=== PATIENT | female | born 1990 | race African-American/Black ===

== ENCOUNTER 2016-06-20 15:03 | Day surgery (SDC) | payer OTHER ==
[2016-06-19 10:44] VITALS: BMI 22.1
--- NOTE | 2016-06-20 15:23 | HP ---
[facility] - Chief Complaint History of Present Illness: 25 year old female with renal failure and malfunctioning PD catheetr. She has pain and dysuria. She has had 2 catheters and 1 repositioning in the past. History Source: Patient - Past Medical History Allergies/Adverse Reactions: Allergies Allergy/AdvReac Type Severity Reaction Status Date / Time No Known Drug Allergies Allergy Verified 06/19/16 10:47 Renal/: Yes: Renal Failure ...LMP: 06/06/16 - Current Medications Current Medications: Home Medications Medication Instructions Recorded Iron Polysaccharide Complex 150 mg PO DAILY 06/19/16 [Ferrex 150] Losartan Potassium 50 mg PO DAILY 06/19/16 Paricalcitol [Zemplar] 2 mcg PO DAILY 06/19/16 Sevelamer HCl [Renagel] 800 mg PO TID 06/19/16 [facility] Physical Exam - Physical Examination General Appearance: No Distress, Thin Lung: Clear to auscultation Heart: Regular rate & rhythm Abdomen: Soft Extremities: No edema Satellite Impression/Plan - Impression/Plan Impression: Malfunction of PD catheter. Operative Procedure: Repalcement of PD cathater, laparoscopy Date to be Performed: 06/20/16
[2016-06-20 15:31] LABS: INR 0.89 (0.82-1.09); PROTHROMBIN TIME (PATIENT) 9.8 SEC (9.98-11.88)
[2016-06-20] MEDS ORDERED: MIDAZOLAM HCL 2 MG/2 ML SINGLE DOSE VIAL ONE (15:40)
[2016-06-20] MEDS ORDERED: LIDOCAINE HCL/PF 2% SDV 5ML VIAL ONE (15:54)
[2016-06-20] MEDS ORDERED: ceFAZolin SODIUM 1 GM VIAL ONE (16:05)
[2016-06-20] MEDS ORDERED: SODIUM CHLORIDE 0.9% P/F 10 ML VIAL IJ ONE (16:05)
[2016-06-20] MEDS ORDERED: DEXAMETHASONE SOD PHOSPHATE 4 MG/1 ML VIAL ONE (16:07)
[2016-06-20] MEDS ORDERED: BUPIVACAINE HCL/PF 0.25% (2.5MG/ML) 10 ML VIAL ONE (16:15)
[2016-06-20] MEDS ORDERED: METOPROLOL TARTRATE 5 MG/5 ML VIAL ONE (16:19)
[2016-06-20] MEDS ORDERED: GLYCOPYRROLATE 0.2 MG/1 ML VIAL ONE (17:09)
[2016-06-20] MEDS ORDERED: NEOSTIGMINE METHYLSULFATE 0.5 MG/ML - 10 ML MDV ONE (17:09)
[2016-06-20] MEDS ORDERED: BACITRACIN 30 GM TUBE TOPICAL OINTMENT ONE (17:17)
--- NOTE | 2016-06-20 17:25 | OP ---
Operative Note - Note: Operative Date: 06/20/16 Pre-Operative Diagnosis: Malfunction PD catheter Operation: Laparoscopy, Placement PD catheter. Removal PD catheter Findings: Old PD catheter in deep pelvis. Implants: Cecilia neck Tenckhoff catheter Post-Operative Diagnosis: Same as Pre-op Surgeon: Jason Crum Anesthesiologist/MOBILE GAME ENGINEER: Sunil Nichols Anesthesia: General Specimens Removed: Old PD catheter
[2016-06-20] MEDS ORDERED: ACETAMINOPHEN 325 MG TABLET (FP) PO PRN (17:26)
[2016-06-20] MEDS ORDERED: oxyCODONE HCL 5 MG TABLET PO PRN (17:26)
[2016-06-20] MEDS ORDERED: PROMETHAZINE HCL 25 MG/1 ML VIAL IVPUSH PRN (17:31)
[2016-06-20] MEDS ORDERED: ONDANSETRON 4 MG/2 ML VIAL IVPUSH PRN (17:31)
[2016-06-20] MEDS ORDERED: SODIUM CHLORIDE 1,000 ML IV SCH (17:45)
[2016-06-20 18:00] VITALS: TEMP 98.2
[2016-06-20 18:45] VITALS: BP 151/93; PULSE 86
--- NOTE | 2016-06-24 13:53 | PATH ---
Surgical Pathology Report Patient Name: LINETTE BROWN Med. Rec. #: [id number] /Age/Gender: 1990 (Age: 25) / F Account: [id number] Location: [facility] SURGICAL Taken: 06/20/2016 Received: 06/23/2016 Reported: 06/24/2016 Physicians: Jason Crum M.D. Specimen(s) Received MALFUNCTIONING PERITONEAL DIALYSIS CATHETER Clinical History Renal failure, malfunctioning PD catheter Final Diagnosis PERITONEAL DIALYSIS CATHETER, REMOVAL: RN DERMATOLOGY (GROSS EXAM). Electronically Signed Anastacio Jaffe M.D. Gross Description Received fresh labeled "malfunctioning peritoneal dialysis catheter" is a 23 cm in length portion of tubing with a 2.5 cm greatest dimension attached weber metallic device. Also received within the same container is a 33.5 cm in length coiled portion of tubing. No soft tissue is present. No sections are submitted, gross only. /06/23/2016 [place]udi06/23/2016
--- NOTE | 2016-07-03 14:41 | OP ---
DATE OF OPERATION: 06/20/2016 SURGEON: Jason Alarcon MD PROCEDURES: Laparoscopy with placement of peritoneal dialysis catheter. Removal of old peritoneal dialysis catheter. PREOPERATIVE DIAGNOSIS: Renal failure with malfunctioning peritoneal dialysis catheter. POSTOPERATIVE DIAGNOSIS: Renal failure with malfunctioning peritoneal dialysis catheter. ANESTHESIA: General. ANESTHESIOLOGIST: Sunil Nichols MD OPERATIVE FINDINGS: The existing peritoneal dialysis catheter was placed with redundancy in the pelvis, so the catheter end was buried within loops of bowel. There were no abnormal adhesions. OPERATIVE PROCEDURE: Following routine patient identification, general anesthesia was induced. The abdomen was prepped with ChloraPrep. The preexisting peritoneal dialysis catheter was attached to the carbon dioxide souce, and carbon dioxide was insufflated into the peritoneal cavity to 15 mmHg pressure. A 5-mm port was then placed through a small midline incision above the umbilicus and a 30-degree angled laparoscope inserted. Abdominal exploration was carried out. After appropriate marking of the location for the new catheter, an incision was then made, and an 8-mm bluntless port passed through the skin and the abdominal wall fascia to the underside of the peritoneum and then directed inferiorly towards the pelvis, where it entered the peritoneal cavity. A new curled swan-neck catheter was advanced with a director shopper marketing through the port, and the end of the catheter positioned at the top of the true pelvis. The port was removed, leaving the inner cuff just underneath then peritoneum. The other end of the tubing was attached to a curved tunneler, which was passed in the subcutaneous tissues to exit in the right lower quadrant abdominal wall. Care was taken not to twist or kink the catheter. The adaptor was placed on the end of the catheter, which was then attached to a bag of saline. This was allowed to run into the peritoneal cavity after removing the carbon dioxide. It took less than 3 minutes for the entire liter to run in. The bag was then dropped to the floor and there was brisk return of fluid. The surgical incisions were closed with interrupted sutures of 3-0 Vicryl on the subcutaneous tissue and running Biosyn sutures on the skin. These wounds were covered with glue. Attention was then turned to the old catheter. A skin incision was through the old incision to the right of the umbilicus and carried down through the subcutaneous tissues using cautery for hemostasis. The catheter was encircled with a clamp. Then the inner cuff was dissected free from its attachments to the rectus muscle and fascia. After freeing the cuff, the inner portion of the catheter was removed from the peritoneal cavity and the resulting hole was closed with a purse-string suture of 3-0 Vicryl. The catheter was divided. The skin end was freed with division of the scar tissue to the outer cuff, and this was then removed. The wound was irrigated and closed with interrupted suture of 3-0 Vicryl and subcuticular suture of Biosyn and Dermabond glue. The exit site was covered with bacitracin and a Bioclusive dressing. Sterile dressings were applied to the remaining incisions and over the catheter. The patient was then taken to the recovery room in stable condition. JASON ALARCON M.D. [id number]
== END 2016-06-20 18:46 | disposition home or self-care (01) ==
LOC: JASU-SURG 15:03
PROVIDERS: ATTEND Surgery
PROC: 0WHG43Z Insertion of Infusion Device into Peritoneal Cavity, Percutaneous Endoscopic Approach (ICD-10-PCS; principal; 2016-06-20 16:00)
DX: T85.611A Breakdown (mechanical) of intraperitoneal dialysis catheter, initial encounter (principal); I12.0 Hypertensive chronic kidney disease with stage 5 chronic kidney disease or end stage renal disease; N18.6 End stage renal disease; Z99.2 Dependence on renal dialysis
CPT/HCPCS: 36415; 84132; 84703; 85610; 87070; 87205; 88300-TC; 94760